=== PATIENT | female | born 1975 | race Two or more races ===

== ENCOUNTER 2021-04-22 19:02 | Emergency (ER) | payer OTHER ==
[~2021-04-22] VITALS: Ht 157.5 cm; Wt 61.2 kg
[2021-04-23] MEDS ORDERED: ZOFRAN8 MG PO (02:41)
[2021-04-23] MEDS ORDERED: PROTONIX40 MG PO (02:41)
[2021-04-23] MEDS ORDERED: PEPCID40 MG PO (02:41)
== END 2021-04-23 03:10 ==
LOC: ER 19:02
DX: K21.9 Gastro-esophageal reflux disease without esophagitis (principal)